=== PATIENT | female | born 1950 | race Caucasian/White ===

== ENCOUNTER → 2020-07-08 09:20 | Outpatient (BNVA) | payer MEDICARE, SELFPAY | PROVIDERS: Visit Provider Surgery | DX: Z80.3 Family history of malignant neoplasm of breast (principal); Z85.3 Personal history of malignant neoplasm of breast | CPT/HCPCS: 99202 ==

== ENCOUNTER → 2020-08-25 10:12 | Outpatient (BNVA) | payer MEDICARE, SELFPAY | PROVIDERS: Visit Provider Surgery | DX: Z80.3 Family history of malignant neoplasm of breast (principal) | CPT/HCPCS: 99212 ==

== ENCOUNTER 2021-06-16 11:53 | Outpatient (REF) | payer MEDICARE, SELFPAY ==
--- NOTE | ~2021-06-16 | MM_ITS ---
EXAMINATION: MM SCREENING DIGITAL BREAST TOMOSYNTHESIS, BILATERAL CLINICAL INFORMATION: Screening. Asymptomatic. Right breast cancer status post lumpectomy, 2010.Benign stereotactic biopsy scar calcifications 12/19/2012 (foci of fibroadenomatous change containing coarse microcalcifications. Also noted are foci of healing biopsy site reaction and alterations consistent with radiation therapy effect). Left stereotactic biopsy 07/28/2015 (Fragments of benign breast tissue with areas of fibroglandular adenomatoid change containing coarse microcalcifications. Microcalcifications are identified within breast tissue as well as blood vessels). COMPARISON: Outside mammography 12/24/2019, 11/14/2018 (Umair MORALES MA); and mammography 11/10/2016. TECHNIQUE: Digital breast tomosynthesis is performed in both the craniocaudal and mediolateral oblique views along with computer-aided detection (CAD). Synthesized 2D images are generated from the tomosynthesis. Additional exaggerated right CC view is provided. FINDINGS: The breasts are heterogeneously dense, which may obscure small masses (ACR BI-RADS breast composition Category c). Parenchymal pattern is similar to prior studies. There is no developing density or interval mass or architectural abnormality or abnormal calcifications. There are again post therapy changes on the right with reduced breast size and stable scarring. There are scattered bilateral punctate and coarse and vascular calcifications again seen. No significant changes. MM/MM tomosynthesis screening BI IMPRESSION: No mammographic evidence of malignancy. Post therapy changes right breast. ASSESSMENT: BI-RADS 2: Benign RECOMMENDATION: Routine annual mammography screening. This patient's information was entered into a reminder system with a target due date for their next mammogram.
== END 2021-06-16 11:54 | disposition home or self-care (01) ==
LOC: HO.MAMMO 11:53
PROVIDERS: PCP Internal Medicine; Visit Provider Internal Medicine
DX: Z12.31 Encounter for screening mammogram for malignant neoplasm of breast (principal)
CPT/HCPCS: 77063; 77067

== ENCOUNTER 2021-08-10 18:00 | Emergency (ER) | payer OTHER, SELFPAY ==
--- NOTE | 2021-08-10 | ECG_ITS ---
Test Reason : CHEST PAIN Blood Pressure : / mmHG Vent. Rate : 093 BPM Atrial Rate : 093 BPM P-R Int : 138 ms QRS Dur : 094 ms QT Int : 408 ms P-R-T Axes : 065 -16 062 degrees QTc Int : 507 ms Normal sinus rhythm Moderate voltage criteria for LVH, may be normal variant ( R in aVL , Kendrick product ) Nonspecific T wave abnormality Abnormal ECG When compared with ECG of 28-MAY-2017 22:39, Nonspecific T wave abnormality now evident in Inferior leads Nonspecific T wave abnormality, worse in Anterolateral leads QT has lengthened Referred By: Generic ED Physician Electronically Signed By:Lenny Barone
[2021-08-10 18:26] VITALS: BP 107/56; PULSE 94; RESP 18; TEMP 36.3; BMI 20.2
== END 2021-08-10 21:43 | disposition left against medical advice (07) ==
LOC: HO.ED 21:32
PROVIDERS: Emergency Provider Emergency Medicine
DX: R53.1 Weakness (principal); R53.83 Other fatigue; R05.9 Cough, unspecified; R06.02 Shortness of breath; R94.31 Abnormal electrocardiogram [ECG] [EKG]
CPT/HCPCS: 93005; 99283